=== PATIENT | female | born 1995 | race Caucasian/White ===

== ENCOUNTER 2019-09-30 16:57 | Outpatient (CLI) | payer OTHER ==
[~2019-09-30] VITALS: Ht 154.9 cm; Wt 73.0 kg
[2019-09-30] MEDS ORDERED: BETAMETHASONE 6 MG/ML, 5ML IM ONE ×2 (17:00→17:10)
== END 2019-09-30 19:00 | disposition home or self-care (01) ==
LOC: LDOP 16:57
PROVIDERS: ATTEND Obstetrics & Gynecology
DX: O40.3XX0 Polyhydramnios, third trimester, not applicable or unspecified (principal); O60.03 Preterm labor without delivery, third trimester; Z3A.33 33 weeks gestation of pregnancy
CPT/HCPCS: 59025; 96372; 99211; J0702; G0463

== ENCOUNTER 2019-10-01 18:11 | Outpatient (CLI) | payer OTHER ==
[2019-10-01] MEDS ORDERED: BETAMETHASONE 6 MG/ML, 5ML IM ONE (18:30)
== END 2019-10-01 20:23 | disposition home or self-care (01) ==
LOC: LDOP 18:11
PROVIDERS: ATTEND Obstetrics & Gynecology
DX: Z34.83 Encounter for supervision of other normal pregnancy, third trimester (principal); Z3A.37 37 weeks gestation of pregnancy
CPT/HCPCS: 59025; 96372; 99211; J0702; G0463

== ENCOUNTER 2019-10-09 14:14 | Outpatient (CLI) | payer OTHER ==
[~2019-10-09] VITALS: Ht 154.9 cm; Wt 74.5 kg
[2019-10-09 14:40] VITALS: BP 109/65
[2019-10-09] MEDS ORDERED: PREN1TAB10 PO (14:50)
== END 2019-10-09 14:58 | disposition home or self-care (01) ==
LOC: LDOP 14:14
PROVIDERS: ATTEND Obstetrics & Gynecology
DX: O40.3XX0 Polyhydramnios, third trimester, not applicable or unspecified (principal); Z3A.34 34 weeks gestation of pregnancy
CPT/HCPCS: 59025; 99211; G0463

== ENCOUNTER 2019-11-03 08:09 | Outpatient (CLI) | payer OTHER ==
[~2019-11-03 08:09] MED LIST: PREN1TAB10 PO
== END 2019-11-03 08:35 | disposition home or self-care (01) ==
LOC: LDOP 08:09
PROVIDERS: ATTEND Obstetrics & Gynecology
DX: O40.3XX0 Polyhydramnios, third trimester, not applicable or unspecified (principal); Z3A.38 38 weeks gestation of pregnancy
CPT/HCPCS: 59025; 99211; G0463

== ENCOUNTER 2019-11-12 06:30 | Inpatient (IN) | payer OTHER ==
[~2019-11-12] VITALS: Ht 162.6 cm; Wt 76.3 kg
[2019-11-12] MEDS ORDERED: NEWBORN KIT ONE (06:32)
[2019-11-12] MEDS ORDERED: OXYTOCIN 30U/ 0.9% NaCL 500ML 500 ML IV ONE (07:17)
[2019-11-12] MEDS: D5%-LACTATED RINGERS 1,000 ML IV SCH ×3 (07:17→23:17)
[2019-11-12] MEDS ORDERED: OXYTOCIN 30U/ 0.9% NaCL 500ML 500 ML IV PRN (07:17)
[2019-11-12] MEDS ORDERED: TERBUTALINE 1 MG/ML, 1ML IVPush PRN (07:30)
[2019-11-12] MEDS ORDERED: METOCLOPRAMIDE 5 MG/ML, 2ML IVPush PRN (07:30)
[2019-11-12] MEDS ORDERED: FENTANYL PF 100 MCG/2ML IVPush PRN (07:30)
[2019-11-12] MEDS ORDERED: ALUMINUM/MAG/SIMETHICONE 30 ML UDC PO PRN (07:30)
[2019-11-12] MEDS ORDERED: FENTANYL PF 100 MCG/2ML IV PRN (07:30)
[2019-11-12] MEDS ORDERED: ONDANSETRON 2MG/ML, 2ML IVPush PRN (07:30)
[2019-11-12] MEDS ORDERED: CALCIUM CARBONATE 500 MG TAB.CHEW PO PRN ×2 (07:30→15:00)
[2019-11-12] MEDS ORDERED: SODIUM CITRATE/CITRIC ACID 30 ML UDC PO PRN (07:30)
[2019-11-12] MEDS ORDERED: TERBUTALINE 1 MG/ML, 1ML SQ PRN (07:30)
[2019-11-12 07:56] LABS: BASOPHILS # (AUTO) 0.04 x10^3/uL (0-0.1); BASOPHILS % (AUTO) 0 % (0-1); EOSINOPHILS % (AUTO) 1 % (1-7); LYMPHOCYTES # (AUTO) 1.72 x10^3/uL (1-3.4); LYMPHOCYTES % (AUTO) 17 % (22-44); MD NO; MEAN CORPUSCULAR HEMOGLOBIN 29.5 pg (27.0-34.8); MEAN CORPUSCULAR VOLUME 89.3 fL (80-100); MONOCYTES # (AUTO) 0.59 x10^3/uL (0.2-0.8); MONOCYTES % (AUTO) 6 % (2-9); NEUTROPHILS # (AUTO) 7.71 x10^3/uL (1.8-6.8); NEUTROPHILS % (AUTO) 76 % (42-75); PLATELET COUNT 203 x10^3/uL (130-400); RED CELL DISTRIBUTION WIDTH 14.4 % (9.6-15.2)
[2019-11-12] MEDS ORDERED: LIDOCAINE 1%, 20ML ONE (08:09)
[2019-11-12] MEDS ORDERED: OXYTOCIN 30U/ 0.9% NaCL 500ML 500 ML ONE ×2 (08:09→15:24)
[2019-11-12] MEDS ORDERED: MISOPROSTOL 200 MCG TABLET ONE (08:09)
[2019-11-12] MEDS: LACTATED RINGERS 1,000 ML IV SCH ×3 (08:22→23:17)
[2019-11-12] MEDS ORDERED: FENTANYL PF 100 MCG/2ML ONE (14:05)
[2019-11-12] MEDS: OXYTOCIN 30U/ 0.9% NaCL 500ML 500 ML IV SCH ×6 (14:31→20:15)
[2019-11-12] MEDS ORDERED: DOCUSATE 100 MG CAPSULE PO PRN (15:00)
[2019-11-12] MEDS ORDERED: ONDANSETRON 2MG/ML, 2ML IV PRN (15:00)
[2019-11-12] MEDS ORDERED: MISOPROSTOL 200 MCG TABLET PR PRN (15:00)
[2019-11-12] MEDS ORDERED: METHYLERGONOVINE 0.2 MG/ML IM PRN (15:00)
[2019-11-12] MEDS ORDERED: OXYcodone/APAP 5/325MG TABLET PO PRN ×2 (15:00)
[2019-11-12] MEDS ORDERED: SIMETHICONE 80 MG CHEW TAB PO PRN (15:00)
[2019-11-12] MEDS ORDERED: IBUPROFEN 600 MG TABLET ONE (15:24)
[2019-11-12] MEDS: IBUPROFEN 600 MG TABLET PO PRN (16:01)
[2019-11-12 20:06] VITALS: BP 102/64
[2019-11-12 22:53] LABS: BASOPHILS # (AUTO) 0.06 x10^3/uL (0-0.1); BASOPHILS % (AUTO) 1 % (0-1); EOSINOPHILS # (AUTO) 0.07 x10^3/uL (0-0.4); EOSINOPHILS % (AUTO) 1 % (1-7); LYMPHOCYTES # (AUTO) 1.75 x10^3/uL (1-3.4); LYMPHOCYTES % (AUTO) 15 % (22-44); MD NO; MEAN CORPUSCULAR HEMOGLOBIN 29.8 pg (27.0-34.8); MEAN CORPUSCULAR HGB CONC 33.8 g/dL (32.4-35.8); MEAN CORPUSCULAR VOLUME 88.2 fL (80-100); MEAN PLATELET VOLUME 8.7 fL (7.4-10.4); MONOCYTES # (AUTO) 0.93 x10^3/uL (0.2-0.8); MONOCYTES % (AUTO) 8 % (2-9); NEUTROPHILS # (AUTO) 9.14 x10^3/uL (1.8-6.8); NEUTROPHILS % (AUTO) 77 % (42-75); PLATELET COUNT 203 x10^3/uL (130-400); RED BLOOD COUNT 3.44 x10^6/uL (3.82-5.3)
[2019-11-13 00:05] VITALS: BP 95/54
[2019-11-13] MEDS ORDERED: RHOGAM FROM BLOOD BANK 1 NOTE EA IM/IV ONE (00:30)
[2019-11-13] MEDS: OXYTOCIN 30U/ 0.9% NaCL 500ML 500 ML IV SCH ×2 (00:31→10:31)
[2019-11-13 04:29] VITALS: BP 97/55
[2019-11-13] MEDS: D5%-LACTATED RINGERS 1,000 ML IV SCH ×2 (07:17→15:17)
[2019-11-13] MEDS: LACTATED RINGERS 1,000 ML IV SCH ×2 (07:17→15:17)
[2019-11-13 07:45] VITALS: BP 101/64
[2019-11-13] MEDS: IBUPROFEN 600 MG TABLET PO PRN ×2 (07:45→16:42)
[2019-11-13] MEDS ORDERED: PRENATAL VIT/IRON/FA 1 EACH TABLET PO SCH (09:00)
[2019-11-13] MEDS ORDERED: IBUP-1222 PO (10:13)
== END 2019-11-13 17:00 | disposition home or self-care (01) | DRG 807 ==
LOC: LDIP 06:30 → 2NW 17:42
PROVIDERS: ADMIT Obstetrics & Gynecology; ATTEND Obstetrics & Gynecology
PROC: 10E0XZZ Delivery of Products of Conception, External Approach (ICD-10-PCS; principal; 2019-11-12)
PROC: 0HQ9XZZ Repair Perineum Skin, External Approach (ICD-10-PCS; 2019-11-12)
PROC: 10907ZC Drainage of Amniotic Fluid, Therapeutic from Products of Conception, Via Natural or Artificial Opening (ICD-10-PCS; 2019-11-12)
PROC: 3E0234Z Introduction of Serum, Toxoid and Vaccine into Muscle, Percutaneous Approach (ICD-10-PCS; 2019-11-13)
DX: O40.3XX0 Polyhydramnios, third trimester, not applicable or unspecified (principal); Z37.0 Single live birth; O62.3 Precipitate labor; O70.0 First degree perineal laceration during delivery; Z3A.39 39 weeks gestation of pregnancy; O75.89 Other specified complications of labor and delivery; Z67.11 Type A blood, Rh negative
CPT/HCPCS: 36415; 85025; 85461; 86592; 86850; 86870; 86900; 86922; 86923; G0378; J2790; J3010; J2590; J7120

== ENCOUNTER 2020-01-03 19:27 | Emergency (ER) | payer OTHER ==
[~2020-01-03] VITALS: Ht 154.9 cm; Wt 64.0 kg
[~2020-01-03 19:27] MED LIST changes: +IBUP-1222 PO
[2020-01-03 20:09] LABS: BASOPHILS % (AUTO) 1 % (0-1); EOSINOPHILS # (AUTO) 0.37 x10^3/uL (0-0.4); EOSINOPHILS % (AUTO) 5 % (1-7); LYMPHOCYTES # (AUTO) 2.54 x10^3/uL (1-3.4); LYMPHOCYTES % (AUTO) 36 % (22-44); MD NO; MEAN CORPUSCULAR HEMOGLOBIN 28.1 pg (27.0-34.8); MEAN CORPUSCULAR HGB CONC 32.5 g/dL (32.4-35.8); MEAN CORPUSCULAR VOLUME 86.5 fL (80-100); MEAN PLATELET VOLUME 8.5 fL (7.4-10.4); MONOCYTES # (AUTO) 0.37 x10^3/uL (0.2-0.8); MONOCYTES % (AUTO) 5 % (2-9); NEUTROPHILS # (AUTO) 3.75 x10^3/uL (1.8-6.8); NEUTROPHILS % (AUTO) 53 % (42-75); PLATELET COUNT 280 x10^3/uL (130-400); RED CELL DISTRIBUTION WIDTH 15.6 % (9.6-15.2)
--- NOTE | 2020-01-03 20:13 | NUR ---
ASSUMED CARE OF PATIENT. PT PRESENTS TO ED WITH C/O BILATERAL UPPER ABD PAIN. SUDDEN ONSET. STARTED WHILE FEEDING BABY. DENIES N/V/D. DENIES URINAR SYMPTOMS. NO HX OF ABD SURGERIES. MILD DISTRESS WITH MODERATE DISCOMFORT NOTED. BREATHING REGULAR AND UNLABORED.
[2020-01-03 20:16] LABS: ALANINE AMINOTRANSFERASE 40 U/L (12-78); ALBUMIN 3.9 g/dL (3.4-5.0); ANION GAP 8 mmol/L (5-15); CALCIUM 8.2 mg/dL (8.5-10.1); CHLORIDE 109 mmol/L (98-107); CREATININE 0.87 mg/dL (0.55-1.02)
[2020-01-03 20:21] LABS: ALKALINE PHOSPHATASE 122 U/L (45-117); BILIRUBIN,TOTAL 0.4 mg/dL (0.2-1.0); TOTAL PROTEIN 7.7 g/dL (6.4-8.2)
--- NOTE | 2020-01-03 20:25 | NUR ---
UP TO RESTROOM WITH STEADY GAIT. UNABLE TO PROVIDE URINE. AWAITING U/S AT THIS TIME. WILL CONTINUE TO MONITOR.
[2020-01-03] MEDS ORDERED: ONDANSETRON 2MG/ML, 2ML ONE (20:52)
[2020-01-03] MEDS ORDERED: MORPHINE SULFATE 4 MG/ML, 1ML ONE (20:52)
[2020-01-03] MEDS ORDERED: ONDANSETRON 2MG/ML, 2ML IVPush ONE (21:00)
[2020-01-03] MEDS ORDERED: MORPHINE SULFATE 4 MG/ML, 1ML IVPush ONE (21:00)
[2020-01-03 21:04] VITALS: BP 110/62
--- NOTE | 2020-01-03 21:07 | NUR ---
PT MEDICATED PER EMAR. PIV PLACED.
--- NOTE | 2020-01-03 21:33 | NUR ---
PT TO US AT THIS TIME
[2020-01-03 22:13] LABS: MICROSCOPIC NOT IND
[2020-01-03 22:19] LABS: CULTURE INDICATED? NO
[2020-01-03] MEDS ORDERED: KETOROLAC 30 MG/1 ML IVPush ONE (22:30)
== END 2020-01-03 23:10 | disposition home or self-care (01) ==
LOC: ED 21:00
DX: K80.20 Calculus of gallbladder without cholecystitis without obstruction (principal); R11.0 Nausea
CPT/HCPCS: 36415; 76700; 80053; 81003; 83690; 84703; 85025; 93005; 96374; 96375; 99285; J2270; J2405